=== PATIENT | male | born 1965 | race Caucasian/White ===

== ENCOUNTER 2020-06-01 22:11 | Inpatient (IN) | payer OTHER ==
[2020-06-01] MEDS ORDERED: Ketorolac Tromethamine 30 MG/ML VIAL ONE (22:33)
[2020-06-01] MEDS ORDERED: Ondansetron PF 4 MG/2 ML Vial ONE (22:33)
[2020-06-01 22:52] LABS: #Lymphocytes 1.1 thou/uL (1.20-3.40); #Monocytes 1.2 thou/uL (0.11-0.59); #Neutrophils 9.9 thou/uL (1.40-6.50); %Basophils 0.2 % (0.0-1.0); %Eosinophils 0.2 % (0.0-10.0); %Monocytes 9.7 % (0.0-10.0); %Neutrophils 80.9 % (42.0-75.0); Hemoglobin 13.9 g/dL (14.0-18.0); Mean Corpuscular HGB CONC 32.4 g/dL (32.0-36.0); Mean Corpuscular Hemoglobin 29.4 pg (27.0-31.0); Mean Platelet Volume 9.1 fL (7.4-10.4); Platelet Count 186 thou/uL (130-400); RBC Distribution Width 12.1 % (11.5-14.5); Red Blood Cell (RBC) Count 4.71 mill/uL (4.70-6.10); White Blood Cell (WBC) Count 12.2 thou/uL (4.8-10.8)
[2020-06-01 23:00] LABS: Bilirubin Negative (Negative); Blood, Urine 3+ (Negative); Clarity Clear (Clear); Glucose, Urine (Dipstick) Normal (Negative); Ketone, Urine 20 mg/dL (Negative); Leukocyte 250 Leu/uL (Negative); Nitrite Negative (Negative); Protein, Urine (Dipstick) 30 mg/dL (Neg-Trace); RBC/HPF Greater than 50 HPF (0-3); Specific Gravity, Urine 1.021 (1.002-1.036); Squamous Epithelial 0-3 HPF (0-3); Urobilinogen Normal mg/dL (Less than 2); WBC/HPF 21-50 HPF (0-3)
[2020-06-01 23:06] LABS: Bacteria/HPF 1+ HPF (None Seen)
[2020-06-01 23:27] LABS: ALT (SGPT) 25 U/L (8-55); AST (SGOT) 17 U/L (5-34); Albumin 4.1 g/dL (3.5-5.0); Alkaline Phosphatase 98 U/L (40-110); Anion Gap 16 mmol/L (10-20); BUN (Urea Nitrogen) 19 mg/dL (8.4-25.7); Bilirubin, Total 0.5 mg/dL (0.2-1.2); Calc. Creatinine Clearance 0 mL/min (70-130); Calcium 9.2 mg/dL (7.8-10.44); Carbon Dioxide 20 mmol/L (22-29); Chloride 107 mmol/L (98-107); Estimated GFR-MDRD 41; Globulin 3.1 g/dL (2.4-3.5); Glucose 108 mg/dL (70-105); Potassium 4.6 mmol/L (3.5-5.1); Protein, Total 7.2 g/dL (6.0-8.3); Sodium 138 mmol/L (136-145)
[2020-06-02] MEDS ORDERED: cefTRIAXone\\ROCEPHIN 1 GM VIAL ONE (00:23)
[2020-06-02] MEDS ORDERED: Acetaminophen 325 MG TAB PO PRN (01:45)
[2020-06-02] MEDS: Lactated Ringer's 1,000 ML IV SCH ×2 (02:28→15:11)
[2020-06-02] MEDS ORDERED: Ondansetron ODT 4 MG TAB SL PRN (04:30)
[2020-06-02] MEDS ORDERED: Ondansetron PF 4 MG/2 ML Vial IVP PRN ×2 (04:30→21:53)
--- NOTE | 2020-06-02 04:59 | HP ---
REASON FOR ADMISSION: Left flank pain. HISTORY OF PRESENT ILLNESS: This is a 55-year-old male patient who is presenting with left flank pain. History is going back to 2 days before his presentation. He started experiencing left flank pain radiating to his left lower quadrant area that lasted for approximately 4 hours, resolved spontaneously. The next day he had recurrence of the pain that persisted. It is described as sharp in nature, radiating to the left lower quadrant area, associated with decreased urination and sensation of having to push to be able to urinate. No dysuria. No. No vomiting. He does endorse nausea and chills. The patient did have a kidney stone 4 weeks ago, but it was smaller. He did not know about it until he passed it. He does have history of recurrent kidney stones. PAST MEDICAL HISTORY: 1. Asthma. 2. BPH. 3. Kidney stones. SOCIAL HISTORY: He does not smoke. Does not drink alcohol. He quit smoking 14 years ago. Used to smoke 3 packs a day. ALLERGIES: NO NOTE OF ANY DRUG ALLERGY. FAMILY HISTORY: Negative for premature coronary artery disease. REVIEW OF SYSTEMS: All systems reviewed except the above mentioned, found to be negative. PHYSICAL EXAMINATION: GENERAL: Awake, alert, oriented, does not appear in distress. VITAL SIGNS: His blood pressure is 114/68, heart rate of 83, saturating 97% on room air. HEAD: Nontraumatic, normocephalic. Pupils equal, reactive. EOMs intact, nonicteric sclerae. Well injected conjunctivae. Oral mucosa normal. Nasal mucosa normal. NECK: Supple. No adenopathy. No murmur. Thyroid is not palpable. Trachea is midline. No supraclavicular adenopathy S1, S2 regular. No murmur. No gallops. No friction rubs. No displacement of PMI. LUNGS: Clear to auscultation bilaterally. No wheezes, rhonchi, or crackles. Bowel sounds are positive. Tenderness on palpation of the left lower quadrant area. Positive costovertebral angle tenderness. EXTREMITIES: No lower extremity edema. No cyanosis. NEUROLOGIC: Cranial nerves 2-12 within normal limits. Normal motor function. Normal sensory function. Normal reflexes. LABORATORY DATA: Blood work shows WBC of 12.2, hemoglobin 13.9, platelets of 186, . Sodium 138, potassium 4.6, bicarb 20, BUN 19, creatinine 1.74. No previous labs to compare with. Urinalysis shows evidence of infection and blood. IMAGING: CT of the abdomen and pelvis reveals an obstructive ureteral stone on the left side, size of 7 mm with mild hydronephrosis. Some mild perinephric stranding bilaterally. I am awaiting for the official report to be fully transcribed. ASSESSMENT AND PLAN: This is a 55-year-old male patient presenting with recurrence of his kidney stones. It seems that it is obstructing his ureter and he does have increased white count. He does have increased creatinine. We are in the process of doing a bladder scan to see, if he is retaining urine. I plan to start him on IV fluids and continue with IV antibiotics. Urology doctor, David is aware of him and there is a plan to insert a stent, if necessary. For that reason, we will keep him n.p.o. for now in case he will undergo that procedure. For his pain, we will have him on morphine as needed. For deep venous thrombosis prophylaxis, he will be on sequential compression devices. Job ID: [id number]
[2020-06-02] MEDS ORDERED: Morphine 2 MG/ML SYRINGE ONE ×3 (05:34→15:23)
[2020-06-02] MEDS: Morphine 2 MG/ML VIAL SLOW IVP PRN ×3 (05:40→15:28)
[2020-06-02 05:43] LABS: #Eosinphils 0.1 thou/uL (0.0-0.7); #Lymphocytes 1.5 thou/uL (1.20-3.40); #Neutrophils 5.4 thou/uL (1.40-6.50); %Basophils 0.6 % (0.0-1.0); %Lymphocytes 18.5 % (21.0-51.0); %Monocytes 12.1 % (0.0-10.0); %Neutrophils 67.8 % (42.0-75.0); Hemoglobin 11.5 g/dL (14.0-18.0); Mean Corpuscular HGB CONC 30.7 g/dL (32.0-36.0); Mean Corpuscular Hemoglobin 28.2 pg (27.0-31.0); Mean Corpuscular Volume 91.8 fL (78.0-98.0); Mean Platelet Volume 8.5 fL (7.4-10.4); Platelet Count 169 thou/uL (130-400); RBC Distribution Width 12.1 % (11.5-14.5); Red Blood Cell (RBC) Count 4.06 mill/uL (4.70-6.10); White Blood Cell (WBC) Count 7.9 thou/uL (4.8-10.8)
[2020-06-02 06:02] LABS: Anion Gap 10 mmol/L (10-20); BUN (Urea Nitrogen) 20 mg/dL (8.4-25.7); Calc. Creatinine Clearance 0 mL/min (70-130); Calcium 8.4 mg/dL (7.8-10.44); Carbon Dioxide 23 mmol/L (22-29); Chloride 110 mmol/L (98-107); Estimated GFR-MDRD 48; Glucose 130 mg/dL (70-105); Potassium 3.8 mmol/L (3.5-5.1); Sodium 139 mmol/L (136-145)
--- NOTE | 2020-06-02 07:46 | CT ---
CT ABDOMEN AND PELVIS: DATE: 06/01/2020. PROVIDED CLINICAL HISTORY: Left flank pain. FINDINGS: The visualized lung bases are free of significant opacity. There is a 7 mm calculus present within the proximal left ureter with mild hydronephrosis. Additiona l smaller bilateral renal calculi are demonstrated. There is a hypodensity involving the left kidney posteriorly which statistically reflects a cyst but is incompletely characterized in the absence of IV contrast material. The solid abdominal organs are suboptimally evaluated in the absence of IV contrast material but demo nstrate an otherwise unremarkable unenhanced CT appearance. There is bilateral perinephric fat stranding, left greater than right. There is no free intraperiton eal fluid or free intraperitoneal air apparent. The appendix appears normal. The gallbladder is dec ompressed. The osseous structure demonstrate no concerning lytic or blastic lesions. IMPRESSION: 1. 7 mm mildly obstructing left proximal ureteral calculus. 2. Bilateral nephrolithiasis. POS: ENRIQUE
[2020-06-02] MEDS: Enoxaparin Sodium 40 MG/0.4 ML SYRINGE SC SCH (10:10)
[2020-06-02 13:36] LABS: SARS-CoV-2 MS2 Positive; SARS-CoV-2 N Gene Negative; SARS-CoV-2 S Gene Negative; SARS-CoV-2 by NAA Not Detected (NotDetected); SARS-CoV-2 orf1ab Negative
[2020-06-02 16:53] VITALS: BMI 29.0
--- NOTE | 2020-06-02 18:14 | RAD ---
SUPINE KUB: 06/02/20 HISTORY: Left ureteral calculus. FINDINGS: Supine imaging limits assessment for free air and small bowel obstruction. Patient body habitus limit s assessment of the abdomen and pelvis. No obvious calcification is seen. Further imaging assessment if clinically warranted, a CT examination of the abdomen and pelvis is advised. IMPRESSION: Limited study secondary to body habitus. No discrete calcification is noted. CT may be beneficial in the proper clinical setting. POS: FRANKIE
[2020-06-02] MEDS ORDERED: Morphine 2 MG/ML VIAL SLOW IVP SCH (18:15)
[2020-06-02] MEDS ORDERED: Ondansetron ODT 4 MG TAB PO PRN (21:53)
[2020-06-02] MEDS: Morphine 4 MG/ML VIAL SLOW IVP PRN (22:26)
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
[2020-06-03] MEDS: cefTRIAXone\\ROCEPHIN 1 GM in Sodium Chloride 0.9% 100 ML IVPB SCH (00:48)
[2020-06-03] MEDS: Morphine 4 MG/ML VIAL SLOW IVP PRN ×3 (02:39→11:25)
[2020-06-03] MEDS: Sodium Chloride 0.9% 1,000 ML IV SCH (11:35)
[2020-06-03] MEDS: Enoxaparin Sodium 40 MG/0.4 ML SYRINGE SC SCH (11:37)
--- NOTE | 2020-06-03 13:46 | PDOC.HOSPP ---
- Subjective Encounter Date: 06/03/20 Encounter Time: 08:00 Subjective: Seen for follow-up regarding nephrolithiasis. Reports left flank pain. - Objective Vital Signs & Weight: Vital Signs (12 hours) Temp Pulse Resp BP BP Pulse Ox 06/03/20 08:00 98.5 F 81 16 105/68 95 06/03/20 07:41 98.5 F 81 20 105/68 95 06/03/20 05:38 98.8 F 80 16 114/75 97 Weight Weight 220 lb Result Diagrams: 06/02/20 05:33 06/02/20 05:33 Additional Labs: I reviewed patient's labs and MAR Hospitalist ROS - Review of Systems Cardiovascular: denies: chest pain, palpitations, orthopnea, paroxysmal noc. dyspnea, edema, light headedness Gastrointestinal: reports: abdominal pain. denies: nausea, vomiting, diarrhea, constipation, melena, hematochezia - Medication Medications: Active Medications Generic Name Dose Route Start Last Admin Trade Name Freq PRN Reason Stop Dose Admin Enoxaparin Sodium 40 mg 06/02/20 09:00 06/03/20 11:37 Enoxaparin Sodium 40 Mg/0.4 Ml Syringe SC Not Given 0900 IRENE Ceftriaxone Sodium 1 gm/ 100 mls @ 200 mls/hr 06/03/20 01:00 06/03/20 00:48 Sodium Chloride IVPB 100 mls Q24HR IRENE Administration Sodium Chloride 1,000 mls @ 75 mls/hr 06/03/20 10:00 06/03/20 11:35 Normal Saline 0.9% IV 1,000 mls .[id number] IRENE Administration Morphine Sulfate 4 mg 06/02/20 18:01 06/03/20 11:25 Morphine 4 Mg/Ml Vial SLOW IVP 4 mg Q4H PRN Administration Pain Ondansetron HCl 4 mg 06/02/20 21:53 06/02/20 22:21 Ondansetron Pf 4 Mg/2 Ml Vial IVP 4 mg Q6H PRN Administration Nausea/Vomiting - Exam General Appearance: awake alert Eye: anicteric sclera ENT: normocephalic atraumatic Neck: supple, no lymphadenopathy Heart: RRR Respiratory: CTAB Gastrointestinal: soft Gastrointestinal - other findings: cva tenderness Extremities: no cyanosis Psychiatric: normal affect, normal behavior Hosp A/P (1) Nephrolithiasis Status: Acute (2) BPH (benign prostatic hyperplasia) Code(s): N40.0 - BENIGN PROSTATIC HYPERPLASIA WITHOUT LOWER URINRY TRACT SYMP Status: Chronic (3) Asthma Code(s): J45.909 - UNSPECIFIED ASTHMA, UNCOMPLICATED Status: Chronic (4) Urinary tract infection Status: Suspected - Plan continue antibiotics Patient to go for scope study later today. Continue pain medications. Continue normal saline at 75 mils per hour. Continue IV ceftriaxone for now, follow urine culture. Asthma stable and controlled.
[2020-06-03] MEDS ORDERED: PROPOFOL 200 MG/20 ML VIAL ONE (15:26)
[2020-06-03] MEDS ORDERED: Dexamethasone 20 MG/5 ML VIAL ONE (15:26)
[2020-06-03] MEDS ORDERED: EPHEDRINE 25 MG/5 ML SYRINGE ONE (15:26)
[2020-06-03] MEDS ORDERED: Ondansetron PF 4 MG/2 ML Vial ONE (15:26)
[2020-06-03] MEDS ORDERED: Lidocaine 1% PF 5 ML VIAL ONE (15:26)
[2020-06-03] MEDS ORDERED: Fentanyl 100 MCG/2 ML VIAL ONE ×2 (16:52→17:18)
[2020-06-03] MEDS ORDERED: Iothalamate Meglumine 60% 50 ML VIAL FS ONE (17:08)
[2020-06-03] MEDS ORDERED: Promethazine HCl 25 MG/ML VIAL SLOW IVP PRN (18:07)
[2020-06-03] MEDS ORDERED: Promethazine HCl 25 MG/ML VIAL IM PRN (18:07)
[2020-06-03] MEDS ORDERED: PACU-Morphine 4MG/ML VIAL SLOW IVP PRN (18:07)
[2020-06-03] MEDS ORDERED: HYDROmorphone 2 MG/ML VIAL SLOW IVP PRN (18:07)
[2020-06-03] MEDS ORDERED: Ondansetron HCl/PF 4 MG/2 ML Vial IVP PRN (18:07)
[2020-06-03] MEDS ORDERED: B & O ONE (18:10)
--- NOTE | 2020-06-03 20:40 | RAD ---
RETROGRADE UROGRAM: 06/03/20 PROVIDED CLINICAL HISTORY: Stent placement. FINDINGS: Spot fluoroscopic images of a ureter, side not specified are submitted. There is opacification of the ureter demonstrating a filling defect at its mid aspect presumably reflecting previously described s tone. The collecting system is not opacified sufficiently for comment. The second submitted image dem onstrates a partially visualized ureteral stent overlying the expected course of the ureter. IMPRESSION: As above. POS: ENRIQUE
--- NOTE | 2020-06-03 23:06 | PRG ---
DATE OF SERVICE: 06/03/2020 INITIAL REASON FOR CONSULTATION: Left-sided ureteral calculus with left-sided flank pain. BRIEF HISTORY: Mr. Rick Yost is a 55-year-old, white male inmate, with a recent acute onset of left-sided flank pain attack beginning around 05/31/2020, initially without nausea, but later with severe back pain, nausea, and vomiting. Patient had radiation as low as the left testicle. Today, the patient is reporting continued left-sided flank pain, lower abdominal pain, and generalized pain symptoms in the left side of his body. PHYSICAL EXAMINATION: VITAL SIGNS: Patient is afebrile, pulse is 80, respirations 16, room air O2 saturation is 97%, and blood pressure is 121/74. HEAD, EYES, EARS, NOSE, AND THROAT: Extraocular movements are intact. Sclerae are anicteric. Oropharynx is clear. NECK: Supple. LUNGS: Clear to auscultation bilaterally. CARDIAC: Regular rate and rhythm, without murmur, rub, or gallop. ABDOMEN: Soft and nontender. It is protuberant and obese. BACK: No costovertebral angle tenderness in the right. Positive left-sided costovertebral angle tenderness. Patient relates discomfort radiating to the lower left abdomen. INTERVAL LABORATORY STUDIES: Microbiology, urine culture negative at 24 hours for the culture collected on 06/01/2020, from the urine. Patient has not had interval laboratories for hematocrit or serum chemistries. ASSESSMENT: Persistent left-sided flank pain symptoms with CT documented left ureteral calculus. Plan will be to proceed to the operating room for treatment of the patient's left-sided ureteral calculus. He was afebrile and had normal white count at last test. Recommending proceeding with cystoscopy, placement of left-sided stent, possible ureteroscopy for treatment of the patient's obstructing left-sided ureteral calculus. Job ID: [id number]
--- NOTE | 2020-06-03 23:18 | OP ---
DATE OF PROCEDURE: 06/03/2020 PREOPERATIVE DIAGNOSIS: Left ureteral calculus, N20.1. POSTOPERATIVE DIAGNOSIS: Left ureteral calculus, N20.1. OPERATIVE PROCEDURE: Cystourethroscopy with left-sided double-J ureteral stent placement, 11310. TEACHER'S AIDE SURGEON: None. SPECIMENS REMOVED: None. DRAINS PLACED: 4.5 Italian x 28 cm double-J left ureteral stent without string. ESTIMATED BLOOD LOSS: 0 mL. OPERATIVE FINDINGS: Left partially obstructing calculus which appears to be probably radiolucent. This had a faint radiopaque appearance to it and on retrograde evaluation, appeared to be in the upper 3rd of the patient's ureter. This was easily bypassed with a stent. DESCRIPTION OF PROCEDURE: The patient was appropriately identified in the preoperative holding area. Informed written consent was obtained. The patient was transported to the operative suite, placed in the supine position. General anesthesia was established. The patient's shackles were removed prior to transport to the operative suite. The patient was repositioned in the supine lithotomy position and prepped and draped in the usual sterile fashion. Cystoscopic evaluation was performed using a 22-Italian cystoscope sheath and a 30-degree optic. The patient's urethra was notable for a urethral stricture distal to the patient's urinary sphincter. Proximal to this, the patient's prostate gland was relatively enlarged. The patient's bladder was entered. Panendoscopic evaluation found some blood within the patient's bladder of blood from the patient's collecting system on the left. Panendoscopic evaluation found no evidence of passage of the patient's stone. There was no stone in the patient's bladder. No foreign objects were observed. We accessed the patient's left ureteric opening, performed retrograde pyelography using a 5-Italian Pollack catheter over a 0.035 angled Glidewire. The [place] catheter was advanced into the distal third of the patient's ureter, and retrograde evaluation was performed. This identified a probable partially radiopaque calculus in the upper third of the patient's ureter. Contrast did flow past this into the patient's collecting system which appeared decompressed. We performed placement of a 4.5 Italian x 28 cm double-J ureteral stent, which was passed over the Glidewire. The patient's left collecting system was mostly decompressed, and we achieved good coil in the patient's renal pelvis. A reasonable coil was obtained in the patient's bladder as well. We removed this drain. We drained the patient's bladder. A belladonna opioid suppository was applied per rectum. The patient's prostate gland appeared to be about 20 g or so with a very small degree of induration. There was no evidence of palpable tumor at this time in the patient's prostate gland. ASSESSMENT: 1. Urethral stricture, bypassed with the cystoscope. 2. Left ureteral calculus. 3. Smaller and non-malignant appearing prostate gland. COMPLICATIONS: None. FOLLOWUP: The patient will need to follow up either at the Urology Division of the [facility] in [place] or can follow in my office with appropriate advance warning. Job ID: [id number]
[2020-06-04] MEDS: cefTRIAXone\\ROCEPHIN 1 GM in Sodium Chloride 0.9% 100 ML IVPB SCH (00:52)
[2020-06-04] MEDS: Sodium Chloride 0.9% 1,000 ML IV SCH ×3 (00:53→20:14)
[2020-06-04] MEDS: Morphine 4 MG/ML VIAL SLOW IVP PRN ×6 (01:00→23:49)
[2020-06-04 06:23] LABS: #Lymphocytes 0.5 thou/uL (1.20-3.40); #Monocytes 0.3 thou/uL (0.11-0.59); #Neutrophils 7.9 thou/uL (1.40-6.50); %Basophils 0.3 % (0.0-1.0); %Eosinophils 0.2 % (0.0-10.0); %Monocytes 3.4 % (0.0-10.0); Hemoglobin 11.9 g/dL (14.0-18.0); Mean Corpuscular HGB CONC 31.6 g/dL (32.0-36.0); Mean Platelet Volume 8.9 fL (7.4-10.4); Platelet Count 189 thou/uL (130-400); RBC Distribution Width 11.8 % (11.5-14.5); Red Blood Cell (RBC) Count 4.11 mill/uL (4.70-6.10); White Blood Cell (WBC) Count 8.7 thou/uL (4.8-10.8)
[2020-06-04 06:45] LABS: Anion Gap 15 mmol/L (10-20); BUN (Urea Nitrogen) 16 mg/dL (8.4-25.7); Calc. Creatinine Clearance 90 mL/min (70-130); Calcium 8.9 mg/dL (7.8-10.44); Carbon Dioxide 22 mmol/L (22-29); Chloride 105 mmol/L (98-107); Estimated GFR-MDRD 56; Glucose 193 mg/dL (70-105); Potassium 4.9 mmol/L (3.5-5.1); Sodium 137 mmol/L (136-145)
[2020-06-04] MEDS: Enoxaparin Sodium 40 MG/0.4 ML SYRINGE SC SCH (08:04)
--- NOTE | 2020-06-04 17:37 | PDOC.HOSPP ---
- Subjective Encounter Date: 06/04/20 Encounter Time: 08:30 Subjective: Patient seen for follow-up for ureterolithiasis. Reports pain is better. - Objective Vital Signs & Weight: Vital Signs (12 hours) Temp Pulse Resp BP Pulse Ox 06/04/20 08:00 96 06/04/20 07:56 98.4 F 93 20 138/73 96 Weight Weight 220 lb I&O: 06/03/20 06/04/20 06/05/20 06:59 06:59 06:59 Intake Total 2400 Output Total 1000 Balance 1400 Result Diagrams: 06/04/20 06:02 06/04/20 06:02 Additional Labs: I reviewed patient's labs and MAR Hospitalist ROS - Review of Systems Cardiovascular: denies: chest pain, palpitations, orthopnea, paroxysmal noc. dyspnea, edema, light headedness Gastrointestinal: reports: abdominal pain. denies: nausea, vomiting, diarrhea, constipation, melena, hematochezia - Medication Medications: Active Medications Generic Name Dose Route Start Last Admin Trade Name Freq PRN Reason Stop Dose Admin Enoxaparin Sodium 40 mg 06/02/20 09:00 06/04/20 08:04 Enoxaparin Sodium 40 Mg/0.4 Ml Syringe SC 40 mg 0900 IRENE Administration Sodium Chloride 1,000 mls @ 75 mls/hr 06/03/20 10:00 06/04/20 05:21 Normal Saline 0.9% IV 1,000 mls .[id number] IRENE Administration Morphine Sulfate 4 mg 06/02/20 18:01 06/04/20 14:51 Morphine 4 Mg/Ml Vial SLOW IVP 4 mg Q4H PRN Administration Pain Ondansetron HCl 4 mg 06/02/20 21:53 06/02/20 22:21 Ondansetron Pf 4 Mg/2 Ml Vial IVP 4 mg Q6H PRN Administration Nausea/Vomiting - Exam General Appearance: awake alert Eye: anicteric sclera ENT: moist mucosa Neck: supple Heart: RRR Respiratory: CTAB Gastrointestinal: soft, non-tender Extremities: no cyanosis Skin: no rashes Musculoskeletal: normal tone Psychiatric: normal affect, normal behavior Hosp A/P (1) Nephrolithiasis Status: Acute (2) BPH (benign prostatic hyperplasia) Code(s): N40.0 - BENIGN PROSTATIC HYPERPLASIA WITHOUT LOWER URINRY TRACT SYMP Status: Chronic (3) Asthma Code(s): J45.909 - UNSPECIFIED ASTHMA, UNCOMPLICATED Status: Chronic (4) Urinary tract infection Status: Suspected - Plan Let us post ureteric stent. Renal urine culture is negative. Discontinue IV ceftriaxone and start oral cefdinir. Asthma stable and controlled. Likely discharge in 24 to 48 hours.
[2020-06-04] MEDS: Cefdinir 300 MG CAP PO SCH (20:11)
[2020-06-05] MEDS: Morphine 4 MG/ML VIAL SLOW IVP PRN ×3 (05:27→14:44)
[2020-06-05 06:24] LABS: #Eosinphils 0.1 thou/uL (0.0-0.7); #Lymphocytes 1.4 thou/uL (1.20-3.40); #Monocytes 0.9 thou/uL (0.11-0.59); #Neutrophils 8.8 thou/uL (1.40-6.50); %Basophils 0.4 % (0.0-1.0); %Eosinophils 0.8 % (0.0-10.0); %Lymphocytes 12.6 % (21.0-51.0); %Monocytes 7.6 % (0.0-10.0); %Neutrophils 78.5 % (42.0-75.0); Hemoglobin 12.7 g/dL (14.0-18.0); Mean Corpuscular HGB CONC 30.9 g/dL (32.0-36.0); Mean Corpuscular Hemoglobin 29.3 pg (27.0-31.0); Mean Corpuscular Volume 94.8 fL (78.0-98.0); Mean Platelet Volume 8.7 fL (7.4-10.4); Platelet Count 202 thou/uL (130-400); RBC Distribution Width 12.1 % (11.5-14.5); Red Blood Cell (RBC) Count 4.35 mill/uL (4.70-6.10); White Blood Cell (WBC) Count 11.1 thou/uL (4.8-10.8)
[2020-06-05 06:44] LABS: Anion Gap 15 mmol/L (10-20); BUN (Urea Nitrogen) 18 mg/dL (8.4-25.7); Calc. Creatinine Clearance 87 mL/min (70-130); Carbon Dioxide 24 mmol/L (22-29); Chloride 106 mmol/L (98-107); Estimated GFR-MDRD 54; Glucose 128 mg/dL (70-105); Potassium 4.1 mmol/L (3.5-5.1); Sodium 141 mmol/L (136-145)
[2020-06-05] MEDS: Enoxaparin Sodium 40 MG/0.4 ML SYRINGE SC SCH (08:25)
[2020-06-05] MEDS: Cefdinir 300 MG CAP PO SCH (08:25)
[2020-06-05] MEDS: Sodium Chloride 0.9% 1,000 ML IV SCH (08:26)
--- NOTE | 2020-06-05 11:45 | PQF ---
CLINICAL DOCUMENTATION CLARIFICATION FORM: Dear Dr. Wheeler Date: 05/31/2020 Please exercise your independent, professional judgment in responding to the clarification form. Clinical indicators are provided on the bottom of this form for your review. Please check appropriate box(es): [ ] Acute Renal Failure (ARF) / Acute Kidney Injury (JENSEN) [ x ] Acute on Chronic Renal Failure please specify Stage of CKD ___stage 3 (see below) [ ] CKD without ARF/JENSEN please specify Stage of CKD [ ] Other diagnosis [ ] Unable to determine In addition, please specify: Present on Admission (POA): [ x ] Yes [ ] No [ ] Unable to determine For continuity of documentation, please document condition throughout progress notes and discharge summary. Thank You. To be completed by CDI/Coding staff for physician review: CLINICAL INDICATORS - SIGNS / SYMPTOMS / LABS / RESULTS AND LOCATION IN MR *ER Record 06/01: Doctor Notes: JENSEN vs CKD Diagnosis: Acute pyelonephritis. Additional: acute kidney injury, Nephrolithiasis *06/02 Consult (David): Lab: Serum chemistries yesterday showed elevation of creatinine to 1.74 with a blood urea nitrogen of 19 today. Creatinine is 1.53 with BUN 20. Estimated GFR today is 48. *LAB ([facility]R) Creatinine Est. GFR 06/01 1.74 41 06/04 1.33 56 06/05 1.37 54 RISK FACTORS / RESULTS AND LOCATION IN MR 06/02 H&P (Rouhana): PMH: Asthma, BPH, Kidney stones A/P: recurrence of kidney stones. It seems that it is obstructing his ureter and he does have increased white count. He does have increased creatinine. 06/02 Consult (David): A/P Left ureteral calculus. TREATMENTS / RESULTS AND LOCATION IN MR ER Medication: 06/01: Sodium chloride 1000ml IVF given MAR 06/03: NS IV 75 mls/hr Op Note 06/03 (David) Cystourethroscopy with left-sided dble-J ureteral stent placement Lab order: Chem 7 06/04, 06/05, 06/06 National Kid[employer] Guidelines for CKD Staging Stage I Kidney damage with normal or increased GFR GFR > 90 Stage II Kidney damage with mildly decreased GFR GFR 60-89 Stage III Kidney damage with moderately decreased GFR GFR 30-59 Stage IV Kidney damage with severely decreased GFR GFR 16-29 Stage V Kidney failure GFR<15 ESRD End Stage Renal Disease On dialysis Acute Renal Failure/Acute Kidney Failure defined as: Increases in SCr by (>) 0.3 mg/dl within 48 hours OR- Increases in SCr by (>) 1.5 times baseline, known or presumed to have occurred within the prior 7 days OR- Urine volume < 0.5 ml/kg/hour for 6 hours (KDIGO supplement 2012 for RIFLE/ROCHELLE criteria) Thank you, Cristina Dominguez, RN, BSN [email or web address] This is a permanent part of the Medical Record [facility]
[2020-06-05 15:31] VITALS: BP 150/87; TEMP 98.6
--- NOTE | 2020-06-06 02:34 | DIS ---
DATE OF ADMISSION: 06/02/2020 DATE OF DISCHARGE: 06/05/2020 PRIMARY CARE PROVIDER: Unknown. DISCHARGE DIAGNOSES: 1. Ureterolithiasis. 2. Hydronephrosis. 3. Urinary tract infection. 4. Acute on chronic renal failure. 5. COVID-19 test negative. CONDITION OF PATIENT ON THE DAY OF DISCHARGE: Stable. I assessed Mr. Yost on the day of discharge. He denies any chest pain or shortness of breath. Vital signs are stable. S1 and S2 are heard, regular. Lungs are clear to auscultation bilaterally. CONSULTATIONS DURING THIS HOSPITALIZATION: Urology, Dr. Hernandez. DISCHARGE MEDICATIONS: He is being discharged home on cefdinir 300 mg 2 times a day and acetaminophen p.r.n. Naproxen was discontinued because of renal failure. Otherwise, no change was made to his pre-admission home medications. HOSPITAL COURSE: Mr. Yost is a pleasant 55-year-old gentleman, who was admitted to [facility] on June 02, 2020, for left ureteral stone causing hydronephrosis. He was also started on antibiotics. He was seen by Urology Service and underwent left ureteric stent placement. Final urine cultures did not show any growth. He is being discharged back to the [facility] on cefdinir. He is advised to follow up with [facility] in [place] in 2 weeks for left ureteral stone with left stent. He will need CT to confirm stone passed before stent removal. He will need stent removal versus left ureteroscopy. Many thanks for allowing me to participate in your patient's care. Please feel free to contact me with any questions or concerns. POST ACUTE CARE FOLLOWUP: With primary care provider in 3 days. DIET: Heart-healthy and renal. ACTIVITY: As tolerated. DISCHARGE DESTINATION: [facility]. TIME SPENT: Total amount of time spent coordinating this discharge: Thirty-two minutes. Job ID: [id number]
--- NOTE | 2020-06-08 03:38 | PQF ---
CLINICAL DOCUMENTATION CLARIFICATION FORM: Dear : Wesley Wheeler Date / Time: 06/08/20336 Please exercise your independent, professional judgment in responding to the clarification form. Clinical indicators are provided on the bottom of this form for your review Please check appropriate box(es): [ ] Sepsis due to UTI [ x ] Severe sepsis due to UTI with JENSEN [ ] Localized infection without sepsis [ ] Other diagnosis [ ] Unable to determine In addition, please specify: Present on Admission (POA): [ x ] Yes [ ] No [ ] Unable to determine Physician Signature: Date/Time: For continuity of documentation, please document condition throughout progress notes and discharge summary. Thank You. To be completed by CDI/Coding staff for physician review: Present Clinical Indicators - Signs / Symptoms / Labs Results and Location in Medical Record [X] WBC 12.2, Platelet count 186, Neutrophils 80.9 Laboratory 06/01 [X] Urine Culture: No growth at 48 hrs Microbiology 06/01 [X] BP 111/63, Pulse 100, Resp 18, Temp 99.1 Vital sign 06/01 [X] SIRS scoring: Yes pt did meet the criteria ED notes p5 06/02 [X] Presenting with left flank pain H&p p1 06/02 Dr Cotton [X] UTI H&p p1 06/02 Dr Cotton [X] Acute on chronic kidney disease DS 1 06/05 Dr Wheeler Present Risk Factors Results and Location in Medical Record [X] BPH H&p p1 06/02 Dr Cotton [X] Kidney stone H&p p1 06/02 Dr Cotton [X] UTI H&p p1 06/02 Dr Cotton Present Treatments Results and Location in Medical Record [X] IV Rocephin 1 gm MAR 06/02 [X] Omnicef 300 mg oral MAR 06/04 [X] IV Lactated Ringers 1L NOV 17 [X] Urine Culture Microbiology 06/01 [X] Cystoscopy with stent placement Operative report Dr Hernandez 06/03 [facility] Signature: Lakshmi Goyal Phone #: [phone] Date/Time: 06/08/2020 0333 This is a permanent part of the Medical Record [facility]
== END 2020-06-05 16:55 | DRG 854 ==
LOC: ERS 22:11 → EEVIPCON 22:11 → ERHOLD 06-02 01:10 → T4-A 06-02 16:15
PROVIDERS: ADMIT Internal Medicine; ATTEND Internal Medicine
PROC: 0T778DZ Dilation of Left Ureter with Intraluminal Device, Via Natural or Artificial Opening Endoscopic (ICD-10-PCS; principal; 2020-06-03)
PROC: BT1FZZZ Fluoroscopy of Left Kidney, Ureter and Bladder (ICD-10-PCS; 2020-06-03)
DX: A41.9 Sepsis, unspecified organism (principal); N13.6 Pyonephrosis; N17.9 Acute kidney failure, unspecified; N18.9 Chronic kidney disease, unspecified; Z20.828 Contact with and (suspected) exposure to other viral communicable diseases; N40.0 Benign prostatic hyperplasia without lower urinary tract symptoms; J45.909 Unspecified asthma, uncomplicated; R65.20 Severe sepsis without septic shock; Z87.891 Personal history of nicotine dependence; Z79.899 Other long term (current) drug therapy; Z79.1 Long term (current) use of non-steroidal anti-inflammatories (NSAID)
CPT/HCPCS: 36415; 74018; 74176; 74420; 80048; 80053; 81003; 81015; 85025; 87086; 87635; 96361; 96365; 96366; 96375; J0696; J1100; J1650; J1885; J2270; J2405; J2704; J3010; J3490; U0003